=== PATIENT | female | born 2000 | race Caucasian/White ===

== ENCOUNTER 2022-01-15 08:50 | Outpatient (CLI) | payer OTHER, SELFPAY ==
--- NOTE | 2022-01-18 11:51 | WPDHOLTEREM ---
Holter/Event Monitor Holter/Event Monitor Date of procedure: 01/15/22 Holter/Event Procedure: 24 Hr Holter Monitor Indications: Bradycardia Conclusion: 1. 24 hour holter monitor on 01/15/22. 2. Underlying rhythm is sinus rhythm. HR range 43-146 bpm; average HR 67 bpm. 3. There are 5 premature supraventricular complexes. No supraventricular tachycardia. 4. There are 38 premature ventricular complexes and 1 ventricular couplet. No ventricular tachycardia. 5. No sinoatrial or atrioventricular blocks. No significant pauses greater than 2 seconds. 6. Patient reports symptoms of chest pain, winded, restless which demonstrate sinus rhythm, HR range 48-121 bpm.
== END 2022-01-15 08:51 | disposition home or self-care (01) ==
LOC: CHSCARD 08:56
DX: R00.1 Bradycardia, unspecified (principal)
CPT/HCPCS: 93225; 93226

== ENCOUNTER 2022-03-06 23:17 | Emergency (ER) | payer OTHER, SELFPAY ==
--- NOTE | ~2022-03-06 | CT_ITS ---
EXAMINATION: CT abdomen pelvis wo con DATE: 03/07/2022 00:41 INDICATION: Right upper quadrant pain. Positive Darnell's sign. TECHNIQUE: Computed tomography (CT) of the abdomen and pelvis was performed without intravenous contr ast. The dose-length product was 225.85 mGy-cm. Automated exposure control and iterative reconstructi on technique were employed. COMPARISON: None. FINDINGS: Lung bases are unremarkable. No significant pleural or pericardial effusion. Heart size nor mal. The liver, spleen, pancreas, adrenal glands and kidneys are unremarkable. Nonobstructive bowel g as pattern. There is a pessary device in the pelvis. No free air or free fluid. IMPRESSION: 1. No acute abdominal abnormality. Reviewed, dictated and finalized at location A.
--- NOTE | 2022-03-06 23:21 | ED.ABDPAIN ---
HPI - Abdominal Pain General Chief Complaint: Back Pain/Injury Stated Complaint: PAIN Time Seen by Provider: 03/06/22 23:22 Source: patient and RN notes reviewed Mode of arrival: ambulatory History of Present Illness MD elicited complaint: abdominal pain and flank pain Onset (ago): day(s) (4) Pain Consistency: intermittent Location: RUQ and R flank Radiation: back Exacerbating factors: eating Relieving factors: nothing Associated symptoms: constipation Review of Systems Review of Systems: All systems reviewed & are unremarkable except as noted in HPI and below Constitutional: Constitutional: Denies chills and Denies fever(s) Gastrointestinal: Gastrointestinal: Reports constipation, Denies diarrhea and Reports nausea Comments: stools are basil-colored Genitourinary: Genitourinary: Denies hematuria and Denies dysuria PMFSH Past Medical History Medical History (Updated 03/07/22 @ 02:17 by Matt Hunt MD) No active medical problems Surgical History Surgical History (Updated 03/06/22 @ 23:21 by Matt Hunt MD) S/P repair of PDA Exam Const: General: healthy appearing, no acute distress and alert Nutritional Appearance: well nourished and thin Orientation/consciousness: patient oriented x3 Limitations: no limitations Other: nurse in room during examination. HENMT: Head: normal to inspection Ears: external ears normal Eyes: Conjunctivae: conjunctivae normal Pupils: Equal, round and reactive pupils present EOM: EOMs intact bilaterally Neck: Neck: normal visual inspection Resp: Effort & Inspection: normal respiratory effort Auscultation: clear to auscultation bilaterally Cardio: Rate: regular rate Rhythm: regular rhythm GI: GI Palp: Yes Soft to palpation, Yes Tenderness to palpation present (GI) ( moderate Right upper quadrant with positive Darnell sign) and Yes Guarding due to palpation present (GI) ( moderate right upper quad) Auscultation: normal bowel sounds Back/Spine/Pelvis: Back: no CVA tenderness Cervical Spine: cervical ROM normal Thoracic/Lumbar Spine: thoraco-lumbar ROM normal Skin: General skin exam: normal color Rashes: no rashes Neuro: General: patient oriented x3, moves all extremities, no focal motor deficits and CN's II-XI intact bilaterally Speech: normal speech Gait exam (Neuro): Normal gait present Extrem: General: normal to inspection and no clubbing, cyanosis or edema Psych: Mental Status: mental status grossly normal Affect: normal affect Attitude: cooperative Course Vital Signs Vital signs: Vital Signs Temperature 36.6 C 03/06/22 23:26 Pulse Rate 59 L 03/06/22 23:26 Respiratory Rate 16 03/06/22 23:26 Blood Pressure 110/60 03/06/22 23:26 Pulse Oximetry 99 03/06/22 23:26 Oxygen Delivery Room Air 03/06/22 23:26 Temperature 36.6 C 03/07/22 02:27 Pulse Rate 60 03/07/22 02:27 Respiratory Rate 18 03/07/22 02:27 Blood Pressure 98/53 L 03/07/22 02:27 Pulse Oximetry 99 03/07/22 02:27 Oxygen Delivery Room Air 03/07/22 02:27 MDM - Abdominal Pain Lab Data Result diagrams: 03/06/22 23:48 03/06/22 23:48 Labs: Lab Results 03/06/22 03/06/22 03/06/22 Range/Units 23:48 23:48 23:48 WBC 7.1 (4.8-10.8) K/mm3 RBC 4.68 (4.20-5.40) M/mm3 Hgb 14.2 (12.0-15.0) g/dL Hct 43.4 (35.0-49.0) % MCV 92.7 (78.0-102.0) fL MCH 30.3 (27.0-31.0) pg MCHC 32.7 (32.0-36.0) g/dL RDW 12.7 (11.6-14.4) % Plt Count 261 (150-420) K/mm3 MPV 9.4 (9.2-11.8) fl Immature Gran % (Auto) 0.3 H (0.0-0.0) % Neut % (Auto) 51.4 (50.0-70.0) % Lymph % (Auto) 38.3 (18.0-42.0) % [place] % (Auto) 7.9 (2.0-11.0) % Eos % (Auto) 1.5 (1.0-6.0) % Baso % (Auto) 0.6 (0.0-1.0) % Lymph # (Auto) 2.73 (1.10-4.50) K/mm3 [place] # (Auto) 0.56 (0.10-0.90) K/mm3 Eos # (Auto) 0.11 (0.02-0.50) K/mm3 Baso # (Auto) 0.04 (0.00-0.10) K/mm3 Abs Immat Gran
[2022-03-06 23:26] VITALS: BP 110/60; PULSE 59; RESP 16; TEMP 36.6; O2SAT 99
[2022-03-06 23:51] LABS: Basophils Absolute Auto 0.04 K/mm3 (0.00-0.10); Basophils Percent Auto 0.6 % (0.0-1.0); Eosinophils Absolute Auto 0.11 K/mm3 (0.02-0.50); Eosinophils Percent Auto 1.5 % (1.0-6.0); Hematocrit 43.4 % (35.0-49.0); Hemoglobin 14.2 g/dL (12.0-15.0); Immature Granulocyte Absolute 0.02 K/mm3 (0.00-0.00); Immature Granulocyte Percent A 0.3 % (0.0-0.0); Lymphocytes Absolute Auto 2.73 K/mm3 (1.10-4.50); Lymphocytes Percent Auto 38.3 % (18.0-42.0); Mean Corpuscular HGB Conc 32.7 g/dL (32.0-36.0); Mean Corpuscular Hemoglobin 30.3 pg (27.0-31.0); Mean Corpuscular Volume 92.7 fL (78.0-102.0); Mean Platelet Volume 9.4 fl (9.2-11.8); Monocytes Absolute Auto 0.56 K/mm3 (0.10-0.90); Monocytes Percent Auto 7.9 % (2.0-11.0); Neutrophils Absolute Auto 3.7 K/mm3 (1.7-7.2); Neutrophils Percent Auto 51.4 % (50.0-70.0); Platelet Count Result 261 K/mm3 (150-420); Red Blood Count 4.68 M/mm3 (4.20-5.40); Red Cell Distribution Width 12.7 % (11.6-14.4); White Blood Count 7.1 K/mm3 (4.8-10.8)
[2022-03-06 23:53] LABS: Add Urine Microscopic? NO; Appearance Urine Clear (Clear); Bilirubin Urine Negative (Negative); Blood Urine Negative (Negative); Color Urine Light Yellow (Yellow); Glucose Urine UA Negative (Negative); Ketones Urine Negative (Negative); Leukocyte Esterase Ur Negative LEU/UL (Negative); Nitrate Urine Negative (Negative); Protein Urine Negative (Negative); Urobilinogen Urine 0.2 mg/dL (0.2-1.0)
[2022-03-07 00:13] LABS: Alanine Aminotransferase 19 U/L (14-59); Albumin Level 4.1 g/dL (3.4-5.0); Alkaline Phosphatase 58 U/L (46-116); Anion Gap 6 mmol/L (8-16); Aspartate Amino Transferase 14 U/L (15-37); Bilirubin,Total 0.2 mg/dL (0.00-1.00); Blood Urea Nitrogen 11 mg/dL (7-18); Calcium 8.9 mg/dL (8.5-10.1); Carbon Dioxide 28 mmol/L (21-32); Chloride 104 mmol/L (98-108); Estimated CRCL calculation 72 ml/min; Estimated Glomerular Filt Rate > 60; Glucose 114 mg/dL (70-99); Lipase 190 U/L (73-393); Osmolality Calculated 286 mOsm/kg (285-295); Potassium 3.4 mmol/L (3.5-5.1); Sodium 138 mmol/L (136-145); Total Protein 7.7 g/dL (6.4-8.2)
[2022-03-07 00:15] LABS: CRP < 0.5 mg/dL (0.0-0.9)
[2022-03-07 02:27] VITALS: BP 98/53; PULSE 60; RESP 18; TEMP 36.6; O2SAT 99
== END 2022-03-07 02:28 | disposition home or self-care (01) ==
PROVIDERS: Emergency Provider Emergency Medicine
DX: R10.11 Right upper quadrant pain (principal)
CPT/HCPCS: 36415; 74176; 80053; 81003; 83690; 85025; 86140; 99284